=== PATIENT | female | born 1965 | race Caucasian/White ===

== ENCOUNTER → 2017-10-04 17:01 | Outpatient (CLI) | payer OTHER, SELFPAY ==
--- NOTE | 2017-10-04 17:07 | RAD_ITS ---
STUDY: X-RAY - LEFT KNEE REASON FOR EXAM: Female, 52 years old. Left knee pain x 5 weeks TECHNIQUE: 4 view(s) of the knee. COMPARISON: None . FINDINGS: Normal visualized distal femur. Normal visualized proximal tibia and fibula. Normal proximal tibiofibular articulation. Normal medial femorotibial compartment. Normal lateral femorotibial compartment. Normal patellofemoral articulation. The soft tissue structures are unremarkable. RAD/Knee 4 or More Views IMPRESSION: Normal x-ray examination of the knee. Electronically Signed: Medardo Sifuentes MD at 23:54 EST , Service support ,
== END ==
PROVIDERS: Family Provider Nurse Practitioner; PCP Nurse Practitioner; Visit Provider Nurse Practitioner
DX: M25.562 Pain in left knee (principal); M25.462 Effusion, left knee
CPT/HCPCS: 73564

== ENCOUNTER → 2018-01-06 18:06 | Outpatient (CLI) | payer OTHER, SELFPAY ==
--- NOTE | 2018-01-06 18:14 | MRI_ITS ---
STUDY: MRI LEFT KNEE REASON FOR EXAM: Female, 52 years old. Pain, injury TECHNIQUE: Standardized fat and water weighted pulse sequences were obtained in all 3 orthogonal planes. COMPARISON: X-ray 10/04/2017 FINDINGS: There is a joint effusion (image 10/30 axial T2 fat sat). There is thinning of the patellar cartilage (image 11/30 axial T2 fat sat). There is focal articular cartilage loss at the posterior aspect the lateral femoral condyle (image 8/22 sagittal T2 fat sat, 10, 11, 12/30 coronal T2 fat sat). Normal medial meniscus. Normal hyaline cartilage of the medial femorotibial compartment. Normal medial femoral condyle and tibial plateau. Normal medial collateral ligamentous complex (MCL). Normal distal semimembranosus, gracilis and semitendinosus tendons. Normal lateral meniscus. Normal proximal tibiofibular articulation. Normal lateral collateral (fibular) ligament. Normal popliteus tendon. Normal biceps femoris tendon. Normal anterior cruciate ligament (ACL). Normal posterior cruciate ligament (PCL). MRI/Lower Ext Joint Only (Routine) IMPRESSION: Focal articular cartilage loss at the posterior aspect lateral femoral condyle Loss of articular cartilage of the patella Joint effusion Electronically Signed: Saul Miller MD at 21:44 EDT Tel , Service support ,
== END ==
PROVIDERS: Family Provider Nurse Practitioner; PCP Nurse Practitioner; Visit Provider Orthopaedic Surgery
DX: S83.242A Other tear of medial meniscus, current injury, left knee, initial encounter (principal); X58.XXXA Exposure to other specified factors, initial encounter; Y93.9 Activity, unspecified; Y92.9 Unspecified place or not applicable; Y99.9 Unspecified external cause status
CPT/HCPCS: 73721